=== PATIENT | male | born 1965 | race Caucasian/White ===

== ENCOUNTER 2021-07-03 17:51 | Emergency (ER) | payer OTHER ==
[~2021-07-03] VITALS: Ht 172.7 cm; Wt 69.0 kg
[2021-07-03 18:23] LABS: HEMATOCRIT 41.7 % (42.0-52.0); HEMOGLOBIN 14.1 gm/dL (14.0-18.0); MCH 29.4 pg (26.0-34.0); MCHC 33.8 g/dL (28.0-37.0); MPV 6.6 fl. (7.2-11.1); NUCLEATED RBCS 0 /100WBC; PLATELET COUNT* 364 thou/uL (150-400); RDW-CV 13.9 % (10.5-14.5); WBC 13.2 thou/uL (4.0-11.0)
[2021-07-03 18:29] LABS: CALCIUM 8.9 mg/dL (8.5-10.1); CREATININE 1.3 mg/dL (0.6-1.3)
[2021-07-03 18:34] LABS: ALBUMIN 3.6 g/dL (3.4-5.0); TOTAL BILIRUBIN 0.4 mg/dL (<0.1-1.0)
[2021-07-03 18:41] LABS: ABSOLUTE LYMPHOCYTES 0.4 thou/uL (0.8-5.3); ABSOLUTE MONOCYTES 0.4 thou/uL (0.0-1.2); ABSOLUTE NEUTROPHILS 12.4 thou/uL (1.6-8.1)
[2021-07-03 18:42] LABS: PLATELET ESTIMATE ADEQUATE
[2021-07-04] MEDS ORDERED: NARCAN4 MG NARES (02:37)
[2021-07-04 02:47] LABS: URINE BILIRUBIN NEGATIVE (Negative); URINE BLOOD NEGATIVE (Negative); URINE CLARITY CLEAR; URINE COLOR YELLOW; URINE GLUCOSE-RANDOM NEGATIVE (Negative); URINE KETONES NEGATIVE (Negative); URINE LEUKOCYTES-REFLEX NEGATIVE (Negative); URINE NITRITE-REFLEX NEGATIVE (Negative); URINE PROTEIN NEGATIVE (Negative); URINE SPECIFIC GRAVITY >= 1.030 (1.005-1.030); URINE UROBILINOGEN 0.2 E.U./dl (0.2-1.0)
[2021-07-04 02:54] LABS: AMP/METHAMP POSITIVE (Negative); BARBITURATES Negative (Negative); BENZODIAZEPINES Negative (Negative); COCAINE Negative (Negative); METHADONE Negative (Negative); OPIATES Negative (Negative); PCP Negative (Negative); THC Negative (Negative)
[2021-07-04] MEDS ORDERED: ZOFRAN ODT4 MG PO (04:20)
[2021-07-04 04:42] VITALS: BP 123/68
--- NOTE | 2021-07-04 09:58 | EKG ---
[place] [address] ELECTROCARDIOGRAM REPORT Name: ANDRÉS MCKINNEY Room: [facility]#: [id number] Admission: 07/03/21 Attend Phys: Discharge: 07/04/21 Date of : 61 Date of Service: 07/03/211814 Report #: [id number] THIS REPORT FOR: //name// [facility] [place] ED Test Date: 2021-07-03 Test Time: 18:15:47 Pat Name: ANDRÉS MCKINNEY Department: Room: Gender: [employer] Operator: : [id number] Requested By: Betito Dobson Order Number: [id number] MD: Mode Cruz Measurements Intervals [place] Rate: 89 P: 80 [place]: 110 QRS: 98 QRSD: 107 T: 39 QT: 405 QTc: 493 Interpretive Statements Sinus rhythm Borderline short [place] interval Probable left atrial enlargement incomplete RBBB Borderline prolonged QT interval No previous ECG available for comparison Electronically Signed On 07-04-2021 9:58:17 [employer] DEVELOPER by Mode Cruz [email or web address] <ELECTRONICALLY SIGNED> By: Mode Cruz MD, [email or web address] 07/04/21 0958 1815 1815 Mode Cruz MD, [facility] /EPI
== END 2021-07-04 04:43 | disposition home or self-care (01) ==
LOC: M.ERS 17:51
PROVIDERS: Emergency Medicine Emergency Medical Services
DX: T40.1X1A Poisoning by heroin, accidental (unintentional), initial encounter (principal)